=== PATIENT | female | born 1995 | race African-American/Black ===

== ENCOUNTER 2016-06-06 17:20 | Emergency (ER) | payer MEDICAID ==
[~2016-06-06] VITALS: Ht 167.6 cm; Wt 59.1 kg
[2016-06-06 17:40] LABS: APPEARANCE,URINE CLEAR (CLEAR); GLUCOSE, URINE (UA) NEGATIVE (NEGATIVE); KETONES,URINE NEGATIVE (NEGATIVE); LEUKOCYTE ESTERASE ,URINE NEGATIVE (NEGATIVE); OCCULT BLOOD,URINE TRACE (NEGATIVE); PH,URINE 6.5 (5.0-8.0); PROTEIN,URINE NEGATIVE (NEGATIVE)
[2016-06-06 17:46] LABS: ADD UA MICROSCOPIC YES
[2016-06-06 18:31] LABS: SQUAMOUS EPITHELIAL CELL,UR Moderate /LPF (None Seen)
[2016-06-06 18:32] LABS: RBC,URINE 0-2 /HPF (0-2)
[2016-06-06] MEDS ORDERED: KETOROLAC TROMETHAMINE 60 MG/2 ML VIAL IM ONE (20:45)
[2016-06-06 22:00] VITALS: BP 121/76
== END 2016-06-06 22:17 | disposition home or self-care (01) ==
LOC: EMS 17:22
DX: R42 Dizziness and giddiness (principal); R51 Headache; R19.7 Diarrhea, unspecified; Z88.0 Allergy status to penicillin
CPT/HCPCS: 36415; 81001; 84703; 96372; 99284; J1885